=== PATIENT | female | born 1990 | race African-American/Black ===

== ENCOUNTER 2020-11-30 13:44 | Outpatient (REF) | payer OTHER, SELFPAY | END 2020-11-30 13:45 | disposition home or self-care (01) | LOC: HO.HMGCLDS 13:44 | PROVIDERS: Visit Provider Internal Medicine | DX: Z20.822 Contact with and (suspected) exposure to COVID-19 (principal) | CPT/HCPCS: C9803; U0003; U0005 ==

== ENCOUNTER 2023-10-23 12:51 | Outpatient (AMB) | payer OTHER, SELFPAY ==
[2023-10-23 12:58] VITALS: BP 120/78; PULSE 64; O2SAT 98; BMI 27.9
--- NOTE | 2023-10-23 12:58 | MHC.OFFWIV ---
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 While every effort has been made to ensure accuracy, optical instrument specialist errors may have been included. The patient is a 33 year old female who presents to the clinic today with right knee pain for 3 days after a fall. She does not recall the events of the fall as she reports that she was intoxicated at the time. She reports that she had to leave work early yesterday due to pain medially. She reports the paint to be worse when she tries to bend the knee or put pressure on it, and she has been limping since the event. [facility] Social History Patient Tobacco Use Status: Former Tobacco user Review of Systems Const All systems reviewed & are unremarkable except as noted in HPI and below Physical Exam Vital Signs: Last Vital Signs Pulse 64 10/23/23 12:58 BP 120/78 10/23/23 12:58 Pulse Ox 98 10/23/23 12:58 Oxygen Delivery Method Room Air 10/23/23 12:58 BMI result Body Mass Index 27.9 Const General: cooperative, healthy appearing, comfortable, no acute distress and alert Orientation/consciousness: patient oriented x3 Limitations: no limitations Skin General skin exam: no rashes or lesions noted, elasticity normal and turgor normal Neuro General: patient oriented x3 Extrem Other: Right knee pain medially on valgus motion. Crepitus present. Psych Appearance: grossly normal Mental Status: mental status grossly normal Speech and movement: Normal speech and movement present Affect: normal affect Assessment & Plan Assessment & Plan (1) Strain of right knee: Code(s): S86.911A - Strain of unspecified muscle(s) and tendon(s) at lower leg level, right leg, initial encounter Qualifiers: Encounter type: initial encounter Qualified Code(s): S86.911A - Strain of unspecified muscle(s) and tendon(s) at lower leg level, right leg, initial encounter Plan: Jp wrap applied, ice pack given. Advised rest, ice, compression, elevation. Likely strained given exam. Advised if no improvement over the next 1- 3 weeks, she may need referral to orthopedics for potential meniscal injury. Advised NSAIDs for pain management. Letter provided to remain out of work until Saturday. Xray reviewed, no obvious fracture. Plan See above for full details and plan. Orders: Orders XR knee RT 3V Today M25.561 - Pain in right knee Coding Level of Care Code Est Pt Level 4 (45518) Diagnoses Strain of right knee, initial encounter S86.911A Encounter type: initial encounter
== END 2023-10-23 14:01 | disposition home or self-care (01) ==
PROVIDERS: Visit Provider Registered Nurse
DX: S86.911A Strain of unspecified muscle(s) and tendon(s) at lower leg level, right leg, initial encounter (principal)
CPT/HCPCS: 99214

== ENCOUNTER 2023-10-23 13:26 | Outpatient (REF) | payer OTHER, SELFPAY ==
--- NOTE | ~2023-10-23 | XR_ITS ---
EXAMINATION: XR KNEE, RIGHT CLINICAL INFORMATION: Pain in right knee COMPARISON: None available. TECHNIQUE: Four views of the right knee. FINDINGS: No fracture or joint effusion. Alignment is anatomic. Joint spaces are maintained. No abnormal soft tissue calcification. XR/XR knee RT 3V IMPRESSION: Normal right knee.
== END 2023-10-23 13:27 | disposition home or self-care (01) ==
LOC: HO.HMGCX 13:26
PROVIDERS: Visit Provider Registered Nurse
DX: M25.561 Pain in right knee (principal)
CPT/HCPCS: 73562